=== PATIENT | female | born 1945 | race Caucasian/White ===

== ENCOUNTER 2017-09-10 15:07 | Inpatient (IN) | payer MEDICARE, MEDICAID ==
[~2017-09-10] VITALS: Ht 152.4 cm; Wt 94.3 kg
[2017-09-10] MEDS ORDERED: acetaminophen 325mg tablet PO ONE (15:30)
[2017-09-10] MEDS ORDERED: normal saline 1000ML IV soln IV ONE (16:25)
[2017-09-10 16:51] LABS: BASOPHILS % (AUTO) 0 % (0-1); EOSINOPHILS # (AUTO) 0.3 X10'3 (0-0.9); EOSINOPHILS % (AUTO) 1.4 % (0-6); LYMPHOCYTES % (AUTO) 4.5 % (21-51); MEAN CORPUSCULAR HEMOGLOBIN 28.6 PG (27.0-31.0); MEAN CORPUSCULAR HGB CONC 32.6 % (33.0-36.5); MEAN CORPUSCULAR VOLUME 87.7 FL (78-98); MEAN PLATELET VOLUME 8.3 FL (7.4-10.4); MONOCYTES # (AUTO) 1.3 X10'3 (0-0.9); MONOCYTES % (AUTO) 6.2 % (2-12); NEUTROPHILS # (AUTO) 18.9 X10'3 (1.8-7.7); NEUTROPHILS % (AUTO) 87.9 % (42-75); PLATELET COUNT 290 X10'3 (140-440); RED BLOOD COUNT 4.91 X10'6 (4.20-5.60); WHITE BLOOD COUNT 21.5 X10'3 (4.5-11.0)
[2017-09-10] MEDS ORDERED: azithromycin/NS 500mg/250ml 250 ML IV ONE (17:00)
[2017-09-10] MEDS ORDERED: CefTRIAXone 2gm/NS 100ml IVPB 100 ML IV ONE (17:00)
[2017-09-10 17:01] LABS: PROTHROMBIN TIME 10.4 SECONDS (9.0-12.0)
[2017-09-10 17:19] LABS: ALANINE AMINOTRANSFERASE 27 U/L (12-78); ALBUMIN 3.1 G/DL (3.4-5.0); ALBUMIN/GLOBULIN RATIO 0.7 (1.1-1.5); ALKALINE PHOSPHATASE 84 IU/L (46-116); ANION GAP 10 (8-16); ASPARTATE AMINO TRANSFERASE 30 U/L (10-37); BILIRUBIN,TOTAL 0.7 MG/DL (0.1-1.0); BLOOD UREA NITROGEN 17 MG/DL (7-18); CALCIUM 9.3 MG/DL (8.5-10.1); CHLORIDE 98 MMOL/L (99-107); CREATININE 0.85 MG/DL (0.40-0.90); GLUCOSE 197 MG/DL (70-104); POTASSIUM 3.8 MMOL/L (3.5-5.1); SODIUM 135 MMOL/L (135-145); TOTAL CARBON DIOXIDE 27.5 MMOL/L (24-32); TOTAL PROTEIN 7.7 G/DL (6.4-8.2); eGFR 66 ML/MIN
[2017-09-10] MEDS ORDERED: CefTRIAXone/dextrose 2GM bag 50 ML IV ONE (17:27)
[2017-09-10] MEDS ORDERED: diltiazem 5mg/ml 5ml inj. IV ONE (17:40)
[2017-09-10] MEDS ORDERED: ipratropium/albuterol 3ml nebule NEB ONE (17:45)
[2017-09-10] MEDS ORDERED: oseltamivir phos 75mg capsule PO ONE (17:50)
[2017-09-10] MEDS ORDERED: diphenhydrAMINE 50 mg/ml inj IV PRN (19:00)
[2017-09-10] MEDS ORDERED: acetaminophen 650mg rectal suppository RC PRN (19:00)
[2017-09-10] MEDS ORDERED: HYDROcodone/acetaminophen 5mg/325mg tablet PO PRN (19:00)
[2017-09-10] MEDS ORDERED: HYDROmorphone 1 mg/ml syringe IV PRN ×2 (19:00)
[2017-09-10] MEDS ORDERED: acetaminophen 325mg tablet PO PRN ×2 (19:00)
[2017-09-10] MEDS ORDERED: mag hydrox/Alum hydrox/simeth 30ml oral suspension PO PRN (19:00)
[2017-09-10] MEDS ORDERED: magnesium hydroxide 30ml (MOM) UD suspension PO PRN (19:00)
[2017-09-10] MEDS ORDERED: ondansetron/PF 4mg/2ml inj IV PRN (19:00)
[2017-09-10] MEDS ORDERED: HYDROcodone/acetaminophen 10/325mg tab PO PRN (19:00)
[2017-09-10] MEDS ORDERED: metoclopramide 5 mg/ml inj IV PRN (19:00)
[2017-09-10] MEDS ORDERED: bisacodyl 10mg suppository rectal RC PRN (19:00)
[2017-09-10] MEDS ORDERED: diphenhydrAMINE 25mg capsule PO PRN (19:00)
[2017-09-10 19:20] LABS: MAGNESIUM 2.4 MG/DL (1.5-2.4)
[2017-09-10 19:21] LABS: ABG BASE EXCESS -1.2 mmol/L (-2.0-3.0); ABG HCO3 23.4 mmol/L (22.0-26.0); ABG OXYGEN SATURATION 95.4 % (95-98); ABG PCO2 (T) 41.6 mmHg (32.0-45.0); ABG PH (T) 7.374 (7.350-7.450); ABG PO2 (T) 84.6 mmHg (83-108); FLOW 1 L/min; FMetHb 0.2 % (0.3-1.12); FO2Hb 94.3 % (94-100); PATIENT TEMPERATURE 38.4; TOTAL HEMOGLOBIN 13.2 G/dl (12.0-16.0)
[2017-09-10] MEDS: cefTRIAXone 1g/NS 100ml IVPB 100 ML IV SCH (20:00)
[2017-09-10] MEDS ORDERED: enoxaparin 30mg/0.3ml syringe SQ SCH (20:00)
[2017-09-10] MEDS: docusate sod 100mg capsule PO SCH (20:00)
[2017-09-10] MEDS ORDERED: enoxaparin 30mg/0.3ml syringe SUBCUT ONE (20:15)
[2017-09-10] MEDS ORDERED: enoxaparin 60mg/0.6ml syringe SUBCUT ONE (20:15)
[2017-09-10] MEDS: methylPREDNISolone sod succ 125mg/2ml vial IV SCH (20:45)
[2017-09-10] MEDS ORDERED: temazepam 15mg capsule PO PRN (21:00)
[2017-09-10 21:16] LABS: CLARITY,URINE CLOUDY (Clear); COLOR,URINE RED (Yellow); UA COLLECTION TYPE VOIDED
[2017-09-10 21:19] LABS: RBC,URINE 50-100 /HPF (0-2); WBC,URINE 0-4 /HPF (0-4)
[2017-09-10 21:21] LABS: BACTERIA,URINE FEW /HPF (Neg); MUCUS STRANDS NONE SEEN /LPF (Neg); SQUAMOUS EPITHELIAL CELL,UR FEW /LPF (FEW)
[2017-09-11] MEDS: lactobacillus rhamnosus 10,000 MMU CELLS/CAPSULE PO SCH ×2 (07:30→22:47)
[2017-09-11] MEDS: pantoprazole 40mg Tablet.DR PO SCH (07:30)
[2017-09-11] MEDS: methylPREDNISolone sod succ 125mg/2ml vial IV SCH ×2 (08:00→20:00)
[2017-09-11] MEDS: docusate sod 100mg capsule PO SCH ×2 (08:00→22:44)
[2017-09-11] MEDS: enoxaparin 30mg/0.3ml syringe SUBCUT SCH ×2 (08:00→22:45)
[2017-09-11] MEDS ORDERED: furosemide 10 MG/1 ML 10ml inj IV SCH (08:00)
[2017-09-11] MEDS ORDERED: enoxaparin 60mg/0.6ml syringe SUBCUT SCH (08:00)
[2017-09-11] MEDS: cefTRIAXone 1g/NS 100ml IVPB 100 ML IV SCH ×2 (09:01→22:46)
[2017-09-11 09:22] LABS: BASOPHILS % (AUTO) 0.3 % (0-1); EOSINOPHILS % (AUTO) 0 % (0-6); HEMATOCRIT 42.1 % (35.0-45.0); HEMOGLOBIN 13.6 g/dl (12.0-16.0); LYMPHOCYTES # (AUTO) 0.4 X10'3 (1.1-4.8); LYMPHOCYTES % (AUTO) 3.9 % (21-51); MEAN CORPUSCULAR HEMOGLOBIN 28.5 PG (27.0-31.0); MEAN CORPUSCULAR HGB CONC 32.3 % (33.0-36.5); MEAN CORPUSCULAR VOLUME 88.1 FL (78-98); MEAN PLATELET VOLUME 8.8 FL (7.4-10.4); MONOCYTES # (AUTO) 0.3 X10'3 (0-0.9); MONOCYTES % (AUTO) 2.2 % (2-12); NEUTROPHILS # (AUTO) 10.8 X10'3 (1.8-7.7); NEUTROPHILS % (AUTO) 93.6 % (42-75); PLATELET COUNT 279 X10'3 (140-440); RED BLOOD COUNT 4.78 X10'6 (4.20-5.60); WHITE BLOOD COUNT 11.5 X10'3 (4.5-11.0)
[2017-09-11 09:34] LABS: ALANINE AMINOTRANSFERASE 37 U/L (12-78); ALBUMIN 2.7 G/DL (3.4-5.0); ALBUMIN/GLOBULIN RATIO 0.6 (1.1-1.5); ALKALINE PHOSPHATASE 78 IU/L (46-116); ANION GAP 9 (8-16); ASPARTATE AMINO TRANSFERASE 28 U/L (10-37); BILIRUBIN,TOTAL 0.5 MG/DL (0.1-1.0); BLOOD UREA NITROGEN 13 MG/DL (7-18); BUN/CREATININE RATIO 15.3 (6.6-38.0); CHLORIDE 104 MMOL/L (99-107); CREATININE 0.85 MG/DL (0.40-0.90); GLUCOSE 242 MG/DL (70-104); POTASSIUM 3.8 MMOL/L (3.5-5.1); SODIUM 141 MMOL/L (135-145); TOTAL CARBON DIOXIDE 28.3 MMOL/L (24-32); TOTAL PROTEIN 7.5 G/DL (6.4-8.2); eGFR 66 ML/MIN
[2017-09-11] MEDS: azithromycin/NS 500mg/250ml 250 ML IV SCH (10:19)
[2017-09-11 10:20] VITALS: BP 150/90
[2017-09-11] MEDS ORDERED: ALBU18HF2 INH (10:41)
[2017-09-11] MEDS ORDERED: UMEC1DIS IH (10:41)
[2017-09-11] MEDS ORDERED: insulin Lispro (HumaLOG) vial - multi-dose SQ SCH (12:45)
[2017-09-11] MEDS ORDERED: MESSAGE TO PHARMACY PO ONE (12:45)
[2017-09-11] MEDS ORDERED: glucagon, human recombinant 1mg kit SUBCUT PRN (12:45)
[2017-09-11] MEDS ORDERED: dextrose ORAL solution 15 GM/59 ML bottle PO PRN ×2 (12:45)
[2017-09-11] MEDS ORDERED: dextrose 50%-water 50ml dispensing syringe IV PRN ×2 (12:45)
[2017-09-11 20:00] VITALS: BP 156/94
[2017-09-11] MEDS ORDERED: Insulin Detemir pen SQ SCH (21:00)
[2017-09-11] MEDS ORDERED: DEXTROSE IV ONE (22:28)
[2017-09-11] MEDS ORDERED: CEFTRIAXONE 1 GM/50 ML IV ONE (22:28)
[2017-09-11] MEDS: lisinopril 20mg tablet PO SCH (22:52)
[2017-09-12] VITALS: BP 147/88
[2017-09-12] MEDS: methylPREDNISolone sod succ 125mg/2ml vial IV SCH ×2 (01:05→07:46)
[2017-09-12] MEDS ORDERED: albuterol 2.5 MG/3 ML nebule NEB PRN (03:35)
[2017-09-12 06:14] LABS: BASOPHILS # (AUTO) 0.2 X10'3 (0-0.2); BASOPHILS % (AUTO) 1.1 % (0-1); EOSINOPHILS # (AUTO) 0.2 X10'3 (0-0.9); EOSINOPHILS % (AUTO) 1.4 % (0-6); HEMATOCRIT 38.8 % (35.0-45.0); HEMOGLOBIN 12.8 g/dl (12.0-16.0); LYMPHOCYTES # (AUTO) 1.3 X10'3 (1.1-4.8); LYMPHOCYTES % (AUTO) 8.6 % (21-51); MEAN CORPUSCULAR HEMOGLOBIN 29.1 PG (27.0-31.0); MEAN CORPUSCULAR HGB CONC 33.1 % (33.0-36.5); MEAN CORPUSCULAR VOLUME 88.1 FL (78-98); MEAN PLATELET VOLUME 9.2 FL (7.4-10.4); MONOCYTES # (AUTO) 0.9 X10'3 (0-0.9); MONOCYTES % (AUTO) 5.9 % (2-12); NEUTROPHILS # (AUTO) 12.2 X10'3 (1.8-7.7); PLATELET COUNT 317 X10'3 (140-440); RED CELL DISTRIBUTION WIDTH 14.3 % (11.5-14.5); WHITE BLOOD COUNT 14.7 X10'3 (4.5-11.0)
[2017-09-12 06:19] LABS: ALANINE AMINOTRANSFERASE 36 U/L (12-78); ALBUMIN 2.8 G/DL (3.4-5.0); ALBUMIN/GLOBULIN RATIO 0.6 (1.1-1.5); ALKALINE PHOSPHATASE 75 IU/L (46-116); ANION GAP 5 (8-16); ASPARTATE AMINO TRANSFERASE 30 U/L (10-37); BILIRUBIN,TOTAL 0.3 MG/DL (0.1-1.0); BLOOD UREA NITROGEN 18 MG/DL (7-18); BUN/CREATININE RATIO 24.3 (6.6-38.0); CALCIUM 9.4 MG/DL (8.5-10.1); CHLORIDE 107 MMOL/L (99-107); CREATININE 0.74 MG/DL (0.40-0.90); GLUCOSE 123 MG/DL (70-104); POTASSIUM 3.3 MMOL/L (3.5-5.1); SODIUM 144 MMOL/L (135-145); TOTAL CARBON DIOXIDE 32.5 MMOL/L (24-32); TOTAL PROTEIN 7.2 G/DL (6.4-8.2); eGFR 77 ML/MIN
[2017-09-12 06:45] VITALS: BP 134/87
[2017-09-12] MEDS ORDERED: CefTRIAXone 1 gm/50ml D5W ADV 50 ML IV ONE (07:27)
[2017-09-12] MEDS: lactobacillus rhamnosus 10,000 MMU CELLS/CAPSULE PO SCH (07:30)
[2017-09-12] MEDS: pantoprazole 40mg Tablet.DR PO SCH (07:30)
[2017-09-12] MEDS: cefTRIAXone 1g/NS 100ml IVPB 100 ML IV SCH ×2 (07:45→20:34)
[2017-09-12] MEDS: docusate sod 100mg capsule PO SCH ×2 (07:46→20:00)
[2017-09-12] MEDS: enoxaparin 30mg/0.3ml syringe SUBCUT SCH (07:46)
[2017-09-12] MEDS: lisinopril 20mg tablet PO SCH (07:46)
[2017-09-12 07:50] LABS: HEMOGLOBIN A1C 6.8 % (4.5-6.2)
[2017-09-12] MEDS ORDERED: furosemide 10 MG/1 ML 10ml inj IV SCH (08:00)
[2017-09-12] MEDS: azithromycin/NS 500mg/250ml 250 ML IV SCH (08:48)
[2017-09-12 11:00] VITALS: BP 147/85
[2017-09-12 20:00] VITALS: BP 163/71
[2017-09-13] VITALS: BP 159/80
[2017-09-13 05:54] LABS: BASOPHILS % (AUTO) 0.2 % (0-1); EOSINOPHILS # (AUTO) 0.4 X10'3 (0-0.9); EOSINOPHILS % (AUTO) 3.6 % (0-6); HEMATOCRIT 37.3 % (35.0-45.0); HEMOGLOBIN 12.2 g/dl (12.0-16.0); LYMPHOCYTES # (AUTO) 1.3 X10'3 (1.1-4.8); LYMPHOCYTES % (AUTO) 12.4 % (21-51); MEAN CORPUSCULAR HEMOGLOBIN 29.1 PG (27.0-31.0); MEAN CORPUSCULAR HGB CONC 32.8 % (33.0-36.5); MEAN CORPUSCULAR VOLUME 88.8 FL (78-98); MEAN PLATELET VOLUME 8.9 FL (7.4-10.4); MONOCYTES # (AUTO) 1.2 X10'3 (0-0.9); MONOCYTES % (AUTO) 10.7 % (2-12); NEUTROPHILS # (AUTO) 7.9 X10'3 (1.8-7.7); NEUTROPHILS % (AUTO) 73.1 % (42-75); PLATELET COUNT 339 X10'3 (140-440); RED BLOOD COUNT 4.21 X10'6 (4.20-5.60); RED CELL DISTRIBUTION WIDTH 14.6 % (11.5-14.5); WHITE BLOOD COUNT 10.8 X10'3 (4.5-11.0)
[2017-09-13 06:24] LABS: ALANINE AMINOTRANSFERASE 42 U/L (12-78); ALBUMIN 2.6 G/DL (3.4-5.0); ALBUMIN/GLOBULIN RATIO 0.7 (1.1-1.5); ALKALINE PHOSPHATASE 63 IU/L (46-116); ANION GAP 6 (8-16); ASPARTATE AMINO TRANSFERASE 27 U/L (10-37); BILIRUBIN,TOTAL 0.3 MG/DL (0.1-1.0); BLOOD UREA NITROGEN 14 MG/DL (7-18); BUN/CREATININE RATIO 19.4 (6.6-38.0); CALCIUM 8.7 MG/DL (8.5-10.1); CHLORIDE 107 MMOL/L (99-107); CREATININE 0.72 MG/DL (0.40-0.90); GLUCOSE 89 MG/DL (70-104); POTASSIUM 3.7 MMOL/L (3.5-5.1); SODIUM 145 MMOL/L (135-145); TOTAL CARBON DIOXIDE 31.6 MMOL/L (24-32); TOTAL PROTEIN 6.4 G/DL (6.4-8.2); eGFR 80 ML/MIN
[2017-09-13] MEDS ORDERED: LACTOBACILLUS RHAMNOSUS GG 15 billion unit sprinkle caps PO SCH (07:30)
[2017-09-13 08:00] VITALS: BP 184/88
[2017-09-13] MEDS: cefTRIAXone 1g/NS 100ml IVPB 100 ML IV SCH (08:00)
[2017-09-13] MEDS: docusate sod 100mg capsule PO SCH (08:00)
[2017-09-13] MEDS: azithromycin/NS 500mg/250ml 250 ML IV SCH (08:00)
[2017-09-13 11:00] VITALS: BP 159/76
[2017-09-13] MEDS ORDERED: AZIT-63 PO (12:11)
[2017-09-13] MEDS ORDERED: TOLN28CR7 TP (12:11)
== END 2017-09-13 12:53 | disposition home or self-care (01) | DRG 871 ==
LOC: ER 15:07 → ED HOLD 18:59 → SUR 3N 09-11 09:43
PROVIDERS: ADMIT Family Medicine; ATTEND Family Medicine
DX: A41.9 Sepsis, unspecified organism (principal); J18.9 Pneumonia, unspecified organism; J96.91 Respiratory failure, unspecified with hypoxia; J90 Pleural effusion, not elsewhere classified; I48.91 Unspecified atrial fibrillation; J44.1 Chronic obstructive pulmonary disease with (acute) exacerbation; Z68.41 Body mass index [BMI] 40.0-44.9, adult; J44.0 Chronic obstructive pulmonary disease with (acute) lower respiratory infection; E66.9 Obesity, unspecified; E87.6 Hypokalemia; G47.30 Sleep apnea, unspecified; Z53.20 Procedure and treatment not carried out because of patient's decision for unspecified reasons; Z88.0 Allergy status to penicillin; Z79.899 Other long term (current) drug therapy; Z79.01 Long term (current) use of anticoagulants; Z79.82 Long term (current) use of aspirin
CPT/HCPCS: 36415; 36600; 70450; 71045; 80053; 81001; 82803; 82948; 83036; 83605; 83735; 83880; 84145; 84484; 85018; 85025; 85610; 87040; 87070; 87502; 87503; 93005; 94640; 94760; 96361; 96365; 99291; J0456; J0696; J1650; J1940; J2930; J3490; J7030

== ENCOUNTER 2019-06-16 14:43 | Emergency (ER) | payer MEDICARE, MEDICAID ==
[~2019-06-16] VITALS: Ht 154.9 cm; Wt 100.0 kg
[~2019-06-16 14:43] MED LIST: ALBU18HF2 INH; TOLN28CR7 TP
--- NOTE | 2019-06-16 15:32 | NUR ---
C/O RESP DIFFICULTY FOR THE PAST COUPLE OF WEEKS, WITH EXERTIONAL DYSPNEA. HX COPD AND EX-SMOKER. BREATHING MORE DIFFICULT TODAY, SO HERE TO BE EVALUATED.
[2019-06-16] MEDS ORDERED: normal saline 1000ML IV soln IVB ONE (15:45)
[2019-06-16] MEDS ORDERED: ipratropium/albuterol 3ml nebule NEB ONE (15:45)
[2019-06-16] MEDS ORDERED: methylPREDNISolone sod succ 125mg/2ml vial IV ONE (15:45)
[2019-06-16 16:22] LABS: BASOPHILS # (AUTO) 0.1 X10'3 (0-0.2); EOSINOPHILS # (AUTO) 0.4 X10'3 (0-0.9); EOSINOPHILS % (AUTO) 6.3 % (0-6); HEMOGLOBIN 14.9 g/dl (12.0-16.0); LYMPHOCYTES # (AUTO) 1.5 X10'3 (1.1-4.8); LYMPHOCYTES % (AUTO) 22.4 % (21-51); MEAN CORPUSCULAR HEMOGLOBIN 29.7 PG (27.0-31.0); MEAN CORPUSCULAR HGB CONC 33.2 g/dL (33.0-36.5); MEAN CORPUSCULAR VOLUME 89.4 FL (78-98); MEAN PLATELET VOLUME 8.1 FL (7.4-10.4); MONOCYTES # (AUTO) 0.8 X10'3 (0-0.9); MONOCYTES % (AUTO) 10.9 % (2-12); NEUTROPHILS # (AUTO) 4.1 X10'3 (1.8-7.7); NEUTROPHILS % (AUTO) 59.4 % (42-75); PLATELET COUNT 311 X10'3 (140-440); RED BLOOD COUNT 5.04 X10'6 (4.20-5.60); RED CELL DISTRIBUTION WIDTH 13.9 % (11.5-14.5); WHITE BLOOD COUNT 6.9 X10'3 (4.5-11.0)
[2019-06-16 16:44] LABS: ALANINE AMINOTRANSFERASE 25 U/L (12-78); ALKALINE PHOSPHATASE 88 IU/L (46-116); ANION GAP 7 (8-16); ASPARTATE AMINO TRANSFERASE 19 U/L (10-37); BILIRUBIN,TOTAL 0.3 MG/DL (0.1-1.0); BLOOD UREA NITROGEN 8 MG/DL (7-18); BUN/CREATININE RATIO 12.7 (6.6-38.0); CALCIUM 9.8 MG/DL (8.5-10.1); CHLORIDE 104 MMOL/L (99-107); CREATININE 0.63 MG/DL (0.40-0.90); GLUCOSE 77 MG/DL (70-104); SODIUM 140 MMOL/L (135-145); TOTAL CARBON DIOXIDE 29.2 MMOL/L (24-32); TOTAL PROTEIN 8.2 G/DL (6.4-8.2); eGFR > 90 ML/MIN
[2019-06-16] MEDS ORDERED: PRED20TA PO (16:54)
[2019-06-16 17:04] VITALS: BP 122/97
== END 2019-06-16 17:05 | disposition home or self-care (01) ==
LOC: ER 14:44
DX: J44.1 Chronic obstructive pulmonary disease with (acute) exacerbation (principal); I48.91 Unspecified atrial fibrillation; Z88.0 Allergy status to penicillin; Z79.899 Other long term (current) drug therapy; Z87.891 Personal history of nicotine dependence
CPT/HCPCS: 36415; 71045; 80053; 85025; 93005; 94640; 96374; 99284; J2930; J7030